=== PATIENT | female | born 1990 | race Caucasian/White ===

== ENCOUNTER 2024-05-05 19:53 | Outpatient (CLI) | payer SELFPAY ==
[~2024-05-05] VITALS: Ht 167.6 cm; Wt 92.7 kg
[2024-05-05 20:30] VITALS: BP 123/82; PULSE 92; TEMP 97.2
[2024-05-05] MEDS ORDERED: LR 1,000 ML IV PRN (20:30)
[2024-05-05] MEDS ORDERED: Acetaminophen 500 MG TAB PO PRN (20:45)
--- NOTE | 2024-05-05 21:00 | NUR ---
2035- ANNEALING FURNACE OPERATOR CALLED TO EXPLAIN SVE. ANNEALING FURNACE OPERATOR KARI, #[id number]. PT STATES THAT PAIN IS NOW 6/10. AGREES TO SVE, PT IS CLOSED. PT WAS ABLE TO VOID FOR UA, THIS NURSE IN ROOM TO DRAW CBC AND CMP. PT DENIES ANY QUESTIONS AT THIS TIME. ANNEALING FURNACE OPERATOR CALL ENDED.
[2024-05-05 21:18] LABS: COLLECTION METHOD CLEAN CATCH
[2024-05-05 21:26] LABS: BASO % 0.2 % (0.0-2.0); EOS # 0.1 K/mm3 (0.0-0.7); EOS % 0.5 % (0.0-4.0); GRAN # 10.4 K/mm3 (1.4-6.5); GRAN % 77.9 % (42.2-75.2); HEMOGLOBIN 10.9 g/dl (12.5-16.0); LYMPH # 1.9 K/mm3 (1.2-3.4); LYMPH % 14.1 % (20.0-51.0); MEAN CELL VOLUME 99 fl (80.0-100.0); MEAN CORPUSCULAR HEMOGLOBIN 32 pg (27-31); MEAN CORPUSCULAR HGB CONC 32 g/dl (33.0-37.0); MEAN PLATELET VOLUME 9.8 fl (7.4-10.4); MONO # 0.8 K/mm3 (0.1-0.6); MONO % 6.1 % (1.7-9.3); PLATELET COUNT 266 K/mm3 (130-400); RED BLOOD COUNT 3.46 M/mm3 (4.10-5.30)
[2024-05-05 21:30] VITALS: BP 116/66; PULSE 84
[2024-05-05 21:31] LABS: PH 6.5 (5.0-8.5); URINE APPEARANCE CLEAR (CLEAR/HAZY); URINE BLOOD 3+ (NEGATIVE); URINE COLOR YELLOW (YELLOW); URINE GLUCOSE TRACE (NEGATIVE); URINE KETONE NEGATIVE (NEGATIVE); URINE NITRATE NEGATIVE (NEGATIVE); URINE PROTEIN(semi-quant) 3+ (NEGATIVE)
[2024-05-05 21:33] LABS: HEMATOCRIT 34.3 % (37.0-47.0)
[2024-05-05 21:42] LABS: ALBUMIN 2.7 g/dL (3.5-5.0); BILIRUBIN,TOTAL 0.3 mg/dL (0.2-1.2); CALCIUM 8.7 mg/dL (8.4-10.2); CREATININE, serum 0.76 mg/dL (0.57-1.11); POTASSIUM 3.8 mEq/L (3.5-4.5); TOTAL PROTEIN 6.4 g/dl (6.2-8.1)
[2024-05-05] MEDS ORDERED: Cephalexin 500 MG CAP PO ONE (22:00)
[2024-05-05] MEDS ORDERED: PRENATAL TABLET PO (22:02)
--- NOTE | 2024-05-05 22:20 | NUR ---
2149- DR. NEELY UPDATED ON LAB RESULTS. SEE PHYSICIAN NOTIFICATION. PT MAY DC HOME FOLLOWING 500MG PO KEFLEX BEING GIVEN. PT TO ROCKET SCIENTIST KEFLEX PRESCRIPTION IN THE MORNING FROM [facility]. 2151- MONITORING DCd, PT CHANGING INTO OWN CLOTHES. 2219- HIDE GRADER CALLED FOR DISCHARGE INSTRUCTIONS, PRICILLA #[id number]. PT EDUCATED ON LAB RESULTS, ABX TX, WHEN TO RETURN TO THE UNIT, AND THAT SHE NEEDS TO ROCKET SCIENTIST KEFLEX PRESCRIPTION IN THE MORNING. UNDERSTANDING VERBALIZED, DISCHARGE PAPERWORK SIGNED. PT DENIES ANY FURTHER QUESTIONS AND STATES THAT SHE IS NO LONGER HAVING ABDOMINAL PAIN. HIDE GRADER SESSION ENDED AND PT OFF THE UNIT AMBULATORY WITH FRIEND AND FOB.
== END 2024-05-05 22:20 | disposition home or self-care (01) ==
LOC: LDRO 19:53
PROVIDERS: Student in an Organized Health Care Education/Training Program
DX: O36.8120 Decreased fetal movements, second trimester, not applicable or unspecified (principal); Z3A.27 27 weeks gestation of pregnancy

== ENCOUNTER 2024-07-18 05:57 | Inpatient (IN) | payer SELFPAY ==
[~2024-07-18] VITALS: Ht 167.6 cm; Wt 102.3 kg
[2024-07-18] VITALS (20 sets, daily range): BP systolic 97–135; BP diastolic 51–76; PULSE 60–101; TEMP 97.8–98.1
[~2024-07-18 05:57] MED LIST: PRENATAL TABLET PO
[2024-07-18] MEDS ORDERED: LR 1,000 ML IV PRN ×2 (06:30→10:30)
--- NOTE | 2024-07-18 06:35 | NUR ---
0630 PT ARRIVES ON UNIT COMPLAINING OF CONTRACTION PAIN SINCE 0130 THIS AM. PT REPORTS THE CONTRACTIONS ARE 4-5 MINUTES APART. STATES SHE "MIGHT" BE LEAKING FLUID BUT ISNT SURE. PT DENIES VB, DFM, OR ANY OTHER COMPLAINTS/COMPLICATIONS FOR THIS . PT STATES SHE HAS A WITH [facility] BECAUSE "SHE DOES NOT DILATE". PT IS SCHEDULED FOR REPEAT ON THURSDAY. PT STATES SHE IS SCHEDULED THURSDAY BECAUSE "THE BABY IS BIG".
--- NOTE | 2024-07-18 06:37 | NUR ---
0635 [facility] NEG
[2024-07-18 07:18] LABS: BASO % 0.2 % (0.0-2.0); EOS # 0.1 K/mm3 (0.0-0.7); EOS % 0.5 % (0.0-4.0); GRAN # 9.7 K/mm3 (1.4-6.5); HEMATOCRIT 36.1 % (37.0-47.0); HEMOGLOBIN 11.4 g/dl (12.5-16.0); LYMPH # 1.8 K/mm3 (1.2-3.4); LYMPH % 14.4 % (20.0-51.0); MEAN CELL VOLUME 98 fl (80.0-100.0); MEAN CORPUSCULAR HEMOGLOBIN 31 pg (27-31); MEAN CORPUSCULAR HGB CONC 32 g/dl (33.0-37.0); MEAN PLATELET VOLUME 10.8 fl (7.4-10.4); MONO # 0.8 K/mm3 (0.1-0.6); MONO % 6.2 % (1.7-9.3); PLATELET COUNT 265 K/mm3 (130-400); RED BLOOD COUNT 3.68 M/mm3 (4.10-5.30)
--- NOTE | 2024-07-18 07:32 | NUR ---
0645 ROLES MD UPDATED ON PT ARRIVAL, COMPLAINTS, HX, FHTS, CTX PATTERN, SVE, AMNITRACE NEGATIVE. ORDERS TO PERFORM LABOR CHECK AND RECHECK CERVIX IN 1 HOUR, START IV, DRAW ADMISSION LABS, AND GIVE 1L OF LR.
--- NOTE | 2024-07-18 08:00 | NUR ---
0755 KAITLYNN SHINE UPDATED ON PT ARRIVAL, COMPLAINTS, HX, FHTS, CTX PATTERN, SVEX2 UNCHANGED, ORDERS FROM ROLES THAT WERE IMPLEMENTED. STATES HE WILL BE ON UNIT IN ABOUT 30 MINUTES TO ASSESS.
--- NOTE | 2024-07-18 08:02 | NUR ---
POC DISCUSSED WITH PT AND FOB VIA VIDEO LOG CHIPPER. PT VERBALIZES UNDERSTANDING AND HAS NO QUESTIONS. LOG CHIPPER:MAXIMINO ID: [id number]
[2024-07-18] MEDS ORDERED: Ondansetron 4 MG/2 ML VIAL IV ONE (09:00)
[2024-07-18] MEDS ORDERED: Oxytocin 10 UNITS/ML VIAL ONE (09:01)
[2024-07-18] MEDS ORDERED: ePHEDrine 50 MG/ML VIAL ONE (09:01)
[2024-07-18] MEDS ORDERED: Phenylephrine 10 MG/ML VIAL ONE (09:01)
[2024-07-18] MEDS ORDERED: Ketorolac 30 MG/ML VIAL ONE (09:50)
[2024-07-18] MEDS ORDERED: dexAMETHasone 10 MG/ML VIAL ONE (10:10)
[2024-07-18] MEDS ORDERED: NS 10 ML IV ONE (10:10)
[2024-07-18] MEDS ORDERED: Loratadine 10 MG TAB PO PRN (10:30)
[2024-07-18] MEDS ORDERED: Ondansetron 4 MG/2 ML VIAL IV PRN (10:30)
[2024-07-18] MEDS ORDERED: Morphine 4 MG/ML VIAL IV PRN (10:30)
[2024-07-18] MEDS ORDERED: Naloxone 0.4 MG/ML VIAL IV PRN (10:30)
[2024-07-18] MEDS ORDERED: Measles/Mumps/Rubella Virus Vaccine Live w Diluent 0.5 ML VIAL SQ SCH (10:30)
[2024-07-18] MEDS ORDERED: oxyCODONE 5 MG TAB PO PRN (10:30)
[2024-07-18] MEDS ORDERED: Magnes Hydrox (MOM) 80 MG/ML 30 ML CUP PO PRN (10:30)
[2024-07-18] MEDS ORDERED: Acetaminophen 500 MG TAB PO SCH (10:30)
--- NOTE | 2024-07-18 15:05 | NUR ---
PERICARE PERFORMED, PADS CHANGED. POC DISCUSSED WITH PT VIA VIDEO BOOT TURNER. PT VERBALIZED UNDERSTANDING
[2024-07-18] MEDS ORDERED: Ibuprofen 600 MG TAB PO SCH (16:30)
--- NOTE | 2024-07-18 16:40 | NUR ---
1630 PT AMBULATED TO BATHROOM WITH RN ASSISTANCE. JOHN PAUL PERFORMED
[2024-07-18] MEDS ORDERED: Sennosides/Docusate 8.6-50 MG TAB PO SCH (17:00)
[2024-07-18] MEDS ORDERED: traZODone 50 MG TAB PO PRN (21:00)
[2024-07-19 04:30] VITALS: BP 100/53; PULSE 77; TEMP 97.7
[2024-07-19 07:54] VITALS: BP 117/65; PULSE 69; TEMP 98
--- NOTE | 2024-07-19 09:18 | NUR ---
Initial visit; Patient non-Latvian speaking. Muffler Mechanic made the sign of the cross and mom understood and thanked Muffler Mechanic for offering blessings with a nod "yes."
--- NOTE | 2024-07-19 12:09 | NUR ---
qualified craft worker electrician received consult for language barrier and resource need. TIM spoke with RN Bita who reports no concerns and pt is being appropriate with . qualified craft worker electrician used [facility] #[id number] fabian to discuss needs with pt. Mother reports to live with partner, Jorden Cedeno (sp?) in [place]. She confirms to not have a number and partner's is [phone]. Mother states she does not have insurance and financial institution treasurer has not met with them yet. She intends to search for work once the is bigger. She does not intend to use daycare. Pt has a car for transportation. She reports her as a good support. Pt states this is her second child. Her first is 15 years old and currently at home. She obtains [facility] and was not familiar to call and add infant. TIM advised she will assist her with this. Mother has no concerns for MH/MAYKEL/ She reports to have a crib, carseat, and diapers/wipes. She intends to combo feed and does have a breast pump. She states she only has 2 cans of formula at home and needs assistance getting more. TIM advised she will reach out to community programs to see if they can assist. TIM provided resource guide, [address], and other local resources for her. TIM called [facility] office to inform them pt needs assistance reaching out to add . They report not having any times upcoming to use blow molding machine operator or yoruba speaking staff. They will reach out to her to schedule soon. TIM called [facility] who can assist pt with formula. Pt will need to pick it up and on Thursday they have a Nigerian volunteer who can assist. TIM wrote this information down and provided this to pt/FOB. TIM spoke with [facility] who states pt is out of their jurisdiction.
[2024-07-19 16:00] VITALS: BP 116/68; PULSE 65; TEMP 98.2
[2024-07-19 19:41] VITALS: BP 108/69; PULSE 83; TEMP 98
[2024-07-20 07:50] VITALS: BP 100/66; PULSE 85; TEMP 98.2
[2024-07-20] MEDS ORDERED: IBU600 MG PO (08:18)
[2024-07-20] MEDS ORDERED: ROXICODONE 55 MG/TAB PO (08:18)
[2024-07-20] MEDS ORDERED: TYLENOL 500MG500 MG PO (08:19)
--- NOTE | 2024-07-20 11:54 | NUR ---
THIS RN GIVES REPORT TO PAULA TO ASSUME CARE OVER TO STEPHANIE
--- NOTE | 2024-07-20 15:30 | NUR ---
DISCHARGE TEACHING COMPLETED THROUGH HAT MEASURER. PATIENT HAS FAMILY MEMBER WHO SPEAKS CHINESE WHO SAYS IS WORKING ON GETTING 2WK AND 6 WEEK FOLLOW UP APPOINTMENTS MADE WITH OFFICE. PATIENT EDUCATED ON PRESCRIPTIONS. QUESTIONS INVITED AND ANSWERED.
== END 2024-07-20 16:15 | disposition home or self-care (01) | DRG 788 ==
LOC: LDRO 05:57 → OB 09:30
PROVIDERS: Obstetrics & Gynecology; ADMIT Obstetrics & Gynecology
PROC: 10D00Z1 Extraction of Products of Conception, Low, Open Approach (ICD-10-PCS; principal; 2024-07-18)
DX: O34.211 Maternal care for low transverse scar from previous cesarean delivery (principal); Z3A.38 38 weeks gestation of pregnancy; Z37.0 Single live birth; O99.214 Obesity complicating childbirth; O36.63X0 Maternal care for excessive fetal growth, third trimester, not applicable or unspecified; O69.81X0 Labor and delivery complicated by cord around neck, without compression, not applicable or unspecified; O99.02 Anemia complicating childbirth; D64.9 Anemia, unspecified; Z23 Encounter for immunization
CPT/HCPCS: J0665; J0690; J1100; J1885; J2371; J2405; J2590; J2765; J7120